=== PATIENT | male | born 1995 | race Caucasian/White ===

== ENCOUNTER 2020-10-09 16:31 | Emergency (ER) | payer MEDICAID ==
[~2020-10-09] VITALS: Ht 182.9 cm; Wt 81.8 kg
[2020-10-09] MEDS: ACETAMINOPHEN 325 MG TABLET PO ONE ×2 (18:44→18:59)
[2020-10-09 19:03] LABS: COVID AG,FIA SOURCE NASOPHARYNGEAL
[2020-10-09 19:20] VITALS: BP 129/73
== END 2020-10-09 21:58 | disposition home or self-care (01) ==
LOC: EMS 16:34
DX: J02.9 Acute pharyngitis, unspecified (principal); R50.9 Fever, unspecified; Z20.822 Contact with and (suspected) exposure to COVID-19
CPT/HCPCS: 87426; 99283; U0003

== ENCOUNTER 2023-09-24 17:16 | Emergency (ER) | payer MEDICAID ==
[~2023-09-24] VITALS: Ht 177.8 cm; Wt 79.5 kg
[2023-09-24 17:25] VITALS: TEMP 98
[2023-09-24] MEDS: DiphenhydrAMINE HCL 50 MG/ML VIAL IVP ONE (18:09)
[2023-09-24] MEDS: HALOPERIDOL LACTATE 5 MG/ML VIAL IVP ONE (18:09)
[2023-09-24] MEDS: LORazepam 2 MG/ML VIAL IVP ONE (18:09)
[2023-09-24 19:01] LABS: BASOPHILS % (AUTO) 0.1 % (0.0-2.0); EOSINOPHILS % (AUTO) 0.2 % (1.0-6.0); HEMATOCRIT 44.7 % (41-53); HEMOGLOBIN 14.9 g/dL (13.5-17.5); LYMPHOCYTES # (AUTO) 1.1 K/uL (1.0-4.8); MEAN CORPUSCULAR HEMOGLOBIN 30.1 pg (26.0-34.0); MEAN CORPUSCULAR HGB CONC 33.3 G/dL (31.0-37.0); MEAN CORPUSCULAR VOLUME 90 fL (80-100); MONOCYTES # (AUTO) 0.8 K/uL (0.1-1.0); MONOCYTES % (AUTO) 5.6 % (2.0-9.0); NEUTROPHILS # (AUTO) 11.5 K/uL (1.8-7.7); PLATELET COUNT (AUTO) 180 K/uL (150-450); RED BLOOD CELL COUNT(AUTO) 4.95 MIL/uL (4.50-5.90); RED CELL DISTRIBUTION WIDTH 13.4 % (11.5-14.5); WHITE BLOOD COUNT (AUTO) 13.3 K/uL (4.5-11.0)
[2023-09-24 19:02] LABS: NEUTROPHILS % (AUTO) 86.1 % (40.0-70.0)
[2023-09-24 19:13] LABS: ANION GAP 12 mmol/L (8-16); CALCIUM, TOTAL 9.6 mg/dL (8.8-10.5); CARBON DIOXIDE 27 mmol/L (22-29); CHLORIDE 105 mmol/L (98-107); GLOMERULAR FILTR. RATE CALC > 60 mL/min (>60); GLUCOSE,RANDOM 111 mg/dL (70-110); POTASSIUM 3.2 mmol/L (3.5-5.1); SODIUM SERUM 144 mmol/L (136-145); UREA NITROGEN, BLOOD 20 mg/dL (7-18)
[2023-09-24 19:14] LABS: RBC MORPHOLOGY COMMENT NORMAL RBC MORPH
[2023-09-24 19:15] LABS: ALCOHOL, BLOOD (SERUM) < 3 mg/dL (0-10)
[2023-09-24 19:18] LABS: ALANINE AMINOTRANSFERASE 44 U/L (12-78); ALKALINE PHOSPHATASE 110 U/L (46-116); ASPARTATE AMINOTRANSFERASE 22 U/L (15-37); BILIRUBIN,TOTAL 0.9 mg/dL (0.1-1.0)
[2023-09-24 21:25] LABS: COVID AG,FIA SOURCE NASAL SWAB
[2023-09-24 21:43] LABS: SARS-COV2 (COVID) ANTIGEN,FIA Negative (Negative)
[2023-09-25] MEDS: ZOLPIDEM TARTRATE 10 MG TABLET PO PRN (01:12)
[2023-09-25] MEDS: LORazepam 2 MG TABLET PO PRN (01:12)
[2023-09-25] MEDS: HALOPERIDOL 5 MG TABLET PO PRN (01:12)
[2023-09-25] MEDS: HALOPERIDOL LACTATE 5 MG/ML VIAL IM ONE (10:34)
[2023-09-25] MEDS: LORazepam 2 MG/ML VIAL IM ONE (10:34)
[2023-09-25] MEDS: DiphenhydrAMINE HCL 50 MG/ML VIAL IM ONE (10:34)
[2023-09-25 16:48] VITALS: BP 130/73; PULSE 72; RESP 16
== END 2023-09-25 16:48 ==
LOC: EMS 17:17 → EDH 21:22 → UNDOADMIN 21:22 → EMS 09-25 16:48 → CANBEDREQ 09-25 17:17
DX: F23 Brief psychotic disorder (principal); R41.82 Altered mental status, unspecified; Z79.899 Other long term (current) drug therapy; Z20.822 Contact with and (suspected) exposure to COVID-19
CPT/HCPCS: 99291; 96374; 96375; 87426; 80048; 80076; 85025; 36415; 96372; G0480; J1200 ×2; J1630 ×2; J2060 ×2; 99285; G0378